=== PATIENT | male | born 1990 | race Caucasian/White ===

== ENCOUNTER 2017-09-21 09:23 | Emergency (ER) | payer SELFPAY | END 2017-09-21 10:34 | disposition home or self-care (01) | LOC: ERS 09:23 | DX: L03.114 Cellulitis of left upper limb (principal); L03.113 Cellulitis of right upper limb; L03.116 Cellulitis of left lower limb; L03.115 Cellulitis of right lower limb; F17.220 Nicotine dependence, chewing tobacco, uncomplicated; W89.0XXA Exposure to welding light (arc), initial encounter | CPT/HCPCS: 99283 ==